=== PATIENT | female | born 1975 | race Caucasian/White ===

== ENCOUNTER 2018-10-22 18:58 | Emergency (ER) | payer BC ==
[2018-10-22] MEDS: KETOROLAC 30 MG INJ IM (19:54)
== END 2018-10-22 21:10 | disposition home or self-care (01) ==
LOC: FTE 21:10
DX: S16.1XXA Strain of muscle, fascia and tendon at neck level, initial encounter (principal); R40.2412 Glasgow coma scale score 13-15, at arrival to emergency department; S09.90XA Unspecified injury of head, initial encounter; R51 Headache; W22.8XXA Striking against or struck by other objects, initial encounter; Y92.9 Unspecified place or not applicable
CPT/HCPCS: 70450; 72125; 81025; 99284-25